=== PATIENT | female | born 1945 | race Caucasian/White ===

== ENCOUNTER → 2022-10-30 | Outpatient (CLI) | payer OTHER | END | disposition home or self-care (01) | LOC: US 12:12 | DX: C50.911 Malignant neoplasm of unspecified site of right female breast (principal); N63.10 Unspecified lump in the right breast, unspecified quadrant | CPT/HCPCS: 19083; 76642; 76942 ==

== ENCOUNTER 2024-12-28 12:40 | Outpatient (CLI) | payer OTHER ==
--- NOTE | 2024-12-28 21:43 | DVH ---
ULTRASOUND-GUIDED right BREAST BIOPSY: INDICATION: MALIGNANT NEOPLASM OF UNSPECIFIED SITE OF RIGHT FEMALE BREAS PROCEDURE: Informed consent was obtained. Risks versus benefits were discussed. The patient understan ds and consents to the procedure. A timeout was conducted to determine the correct patient, biopsy si dedness and correct procedure. Preliminary ultrasound determine location of the right breast mass. The overlying skin was prepped and draped in the usual sterile fashion. Local anesthesia was achieved with 1% lidocaine. A small david matotomy was performed to facilitate passage of a 12-gauge biopsy needle with a 25 mm core length. Se veral core specimens were acquired under sonographic guidance and submitted to the laboratory in form [place]. A biopsy marker clip was inserted at the biopsy site. Post clip mammogram was obtained and demonstrate clip in appropriate position. Hemostasis was achieved with compression, then dressed. The patient tolerated the procedure well without any immediate complications. IMPRESSION: Status post ultrasound-guided needle core biopsy of the right breast. 2 breast masses biopsied 10:00 and 11:00 right breast mass by dr Wisdom
== END 2024-12-29 17:00 | disposition home or self-care (01) ==
LOC: US 12:40
DX: C50.411 Malignant neoplasm of upper-outer quadrant of right female breast (principal); N63.11 Unspecified lump in the right breast, upper outer quadrant
CPT/HCPCS: 19083; 76642; 88307; 88341; 88342; 88360; A4648; 76942